=== PATIENT | male | born 1940 | race Caucasian/White ===

== ENCOUNTER → 2019-12-05 | Outpatient (CLI) | payer MEDICARE ==
[~2019-12-05] MED LIST: OMEP20ER; TAMS.4ER
== END | disposition home or self-care (01) ==
LOC: LAB SHORT 08:52 → LAB EV 08:52
DX: N40.0 Benign prostatic hyperplasia without lower urinary tract symptoms (principal)
CPT/HCPCS: 87086

== ENCOUNTER → 2019-12-06 | Outpatient (CLI) | payer MEDICARE ==
[2019-12-06 16:24] LABS: International Normalized Ratio 1.06; Prothrombin Time Results 11.3 Sec (9.7-11.5)
[2019-12-06 18:49] LABS: Percent Saturation 38.4 % (20.0-50.0)
[2019-12-07 09:11] LABS: HBSAG SCREEN Negative (Negative); HEP A AB, IGM Negative (Negative); HEP B CORE AB, IGM Negative (Negative); HEP C VIRUS AB <0.1 (0.0-0.9)
== END | disposition home or self-care (01) ==
LOC: LAB EV 15:13 → LAB SHORT 15:13
PROVIDERS: Chiropractor
DX: R74.01 Elevation of levels of liver transaminase levels (principal); R31.9 Hematuria, unspecified
CPT/HCPCS: 80074; 82728; 83540; 83550; 83690; 85610; 85730

== ENCOUNTER → 2019-12-07 | Outpatient (CLI) | payer MEDICARE ==
[2019-12-07 12:49] LABS: Albumin, Blood 4.3 g/dL (3.4-5.0); Albumin/Globulin Ratio 1.3 (0.8-1.8); Bilirubin, Direct 9.1 mg/dL (0.0-0.3); Bilirubin, Indirect 2.4 mg/dL (0.1-0.7); Bilirubin, Total 11.5 mg/dL (0.1-1.0); Globulin, Blood 3.3 g/dL (2.2-4.0); Total Protein, Blood 7.6 g/dL (6.4-8.2)
== END | disposition home or self-care (01) ==
LOC: LAB SHORT 12:32 → LAB EV 12:32
PROVIDERS: Chiropractor
DX: C25.9 Malignant neoplasm of pancreas, unspecified (principal); E80.6 Other disorders of bilirubin metabolism; K86.89 Other specified diseases of pancreas; R74.01 Elevation of levels of liver transaminase levels
CPT/HCPCS: 80076; 86301

== ENCOUNTER 2019-12-16 00:12 | Emergency (ER) | payer MEDICARE ==
[~2019-12-16] VITALS: Ht 175.3 cm; Wt 81.7 kg
[2019-12-16] MEDS ORDERED: TAMS.4ER (00:46)
[2019-12-16] MEDS ORDERED: OMEP20ER (00:46)
[2019-12-16 01:06] LABS: BASOPHILS ABSOLUTE AUTO 0.02 K/mm3 (0.00-0.23); BASOPHILS PERCENT AUTO 0 % (0-2); EOSINOPHILS ABSOLUTE AUTO 0.03 K/mm3 (0.00-0.68); EOSINOPHILS PERCENT AUTO 0 % (0-6); Hematocrit 31.2 % (37.0-53.0); Hemoglobin 10.7 g/dL (13.5-17.5); IMMATURE GRAN ABSOLUTE AUTO 0.07 K/mm3 (0.00-0.10); IMMATURE GRAN PERCENT AUTO 1 % (0-1); LYMPHOCYTES ABSOLUTE AUTO 0.59 K/mm3 (0.84-5.20); LYMPHOCYTES PERCENT AUTO 5 % (21-46); MONOCYTES ABSOLUTE AUTO 0.59 K/mm3 (0.16-1.47); MONOCYTES PERCENT AUTO 5 % (4-13); Mean Corpuscular HGB 32.6 pg (26.0-34.0); Mean Corpuscular HGB Conc 34.3 g/dL (31.5-36.5); Mean Corpuscular Volume 95 fL (80-100); Mean Platelet Volume 10.1 fL (9.1-12.4); NEUTROPHILS ABSOLUTE AUTO 9.83 K/mm3 (1.96-9.15); NEUTROPHILS PERCENT AUTO 88 % (41-73); Platelet Count 307 K/mm3 (150-400); RDW Coefficient Variation 11.7 % (11.7-14.2); RDW Standard Deviation 40.5 fL (35.1-46.3); Red Blood Cell Count 3.28 M/mm3 (4.30-5.90); White Blood Cell Count 11.13 K/mm3 (4.00-11.30)
[2019-12-16 01:24] LABS: Alanine Aminotransfer (ALT/SGP 113 U/L (12-78); Albumin, Blood 2.8 g/dL (3.4-5.0); Albumin/Globulin Ratio 0.8 (0.8-1.8); Alk Phos 180 U/L (50-136); Anion Gap 9 mmol/L (6-16); Aspartate Aminotrans (AST/SGOT 38 U/L (12-37); Bilirubin, Total 4.8 mg/dL (0.1-1.0); Blood Urea Nitrogen 13 mg/dL (8-24); Bun/Creatinine Ratio 18.4 (12.0-20.0); CO2, Blood 26 mmol/L (21-32); Calcium, Blood 8.5 mg/dL (8.5-10.1); Chloride, Blood 92 mmol/L (98-108); Creatinine, Blood 0.71 mg/dL (0.60-1.20); Globulin, Blood 3.7 g/dL (2.2-4.0); Glomerular Filtration Rate >60 (60-); Glucose, Blood 160 mg/dL (70-99); Potassium, Blood 3.6 mmol/L (3.5-5.5); Sodium, Blood 127 mmol/L (136-145); Total Protein, Blood 6.5 g/dL (6.4-8.2)
== END 2019-12-16 06:19 | disposition short-term general hospital (02) ==
LOC: ER 00:12
PROVIDERS: Student in an Organized Health Care Education/Training Program
DX: K91.89 Other postprocedural complications and disorders of digestive system (principal); K56.7 Ileus, unspecified; Z20.828 Contact with and (suspected) exposure to other viral communicable diseases; Z79.899 Other long term (current) drug therapy; Y83.8 Other surgical procedures as the cause of abnormal reaction of the patient, or of later complication, without mention of misadventure at the time of the procedure
CPT/HCPCS: 36415; 74177; 80053; 83690; 85025; 96361; 96374-59; 96375; 99285-25; J2270; J2405; J7030; Q9967; U0004

== ENCOUNTER → 2020-02-09 | Outpatient (CLI) | payer MEDICARE ==
[~2020-02-09] MED LIST changes: +CHEMO; +SULTRIDS PO; -TAMS.4ER; +TAMS.4ER PO
[2020-02-09 15:00] LABS: Alanine Aminotransfer (ALT/SGP 29 U/L (12-78); Albumin, Blood 2.3 g/dL (3.4-5.0); Albumin/Globulin Ratio 0.5 (0.8-1.8); Alk Phos 207 U/L (40-126); Anion Gap 11 mmol/L (6-16); Aspartate Aminotrans (AST/SGOT 43 U/L (12-37); Bilirubin, Total 4.9 mg/dL (0.1-1.0); Blood Urea Nitrogen 9 mg/dL (8-24); CO2, Blood 25 mmol/L (21-32); Calcium, Blood 8.5 mg/dL (8.5-10.1); Chloride, Blood 95 mmol/L (98-108); Globulin, Blood 4.2 g/dL (2.2-4.0); Glomerular Filtration Rate >60 (60-); Glucose, Blood 114 mg/dL (70-99); Potassium, Blood 3.5 mmol/L (3.5-5.5); Sodium, Blood 131 mmol/L (136-145); Total Protein, Blood 6.5 g/dL (6.4-8.2)
[2020-02-09 15:39] LABS: BASOPHILS ABSOLUTE AUTO 0.06 K/mm3 (0.00-0.23); BASOPHILS PERCENT AUTO 1 % (0-2); EOSINOPHILS ABSOLUTE AUTO 0.04 K/mm3 (0.00-0.68); EOSINOPHILS PERCENT AUTO 1 % (0-6); Hematocrit 28.9 % (37.0-53.0); Hemoglobin 9.7 g/dL (13.5-17.5); IMMATURE GRAN ABSOLUTE AUTO 0.13 K/mm3 (0.00-0.10); IMMATURE GRAN PERCENT AUTO 2 % (0-1); LYMPHOCYTES ABSOLUTE AUTO 1.55 K/mm3 (0.84-5.20); LYMPHOCYTES PERCENT AUTO 21 % (21-46); MONOCYTES ABSOLUTE AUTO 0.85 K/mm3 (0.16-1.47); MONOCYTES PERCENT AUTO 11 % (4-13); Mean Corpuscular HGB 30.3 pg (26.0-34.0); Mean Corpuscular HGB Conc 33.6 g/dL (31.5-36.5); Mean Corpuscular Volume 90 fL (80-100); Mean Platelet Volume 9.3 fL (9.1-12.4); NEUTROPHILS ABSOLUTE AUTO 4.93 K/mm3 (1.96-9.15); NEUTROPHILS PERCENT AUTO 65 % (41-73); Platelet Count 246 K/mm3 (150-400); RDW Coefficient Variation 19.2 % (11.7-14.2); RDW Standard Deviation 62.5 fL (35.1-46.3); White Blood Cell Count 7.56 K/mm3 (4.00-11.30)
== END | disposition home or self-care (01) ==
LOC: LAB SHORT 14:44
PROVIDERS: Physician Assistant Medical
DX: R53.83 Other fatigue (principal)
CPT/HCPCS: 80053; 85025

== ENCOUNTER 2020-03-29 08:03 | Inpatient (IN) | payer MEDICARE ==
[~2020-03-29] VITALS: Ht 175.3 cm; Wt 76.1 kg
[~2020-03-29 08:03] MED LIST changes: -CHEMO; -SULTRIDS PO; -TAMS.4ER PO
[2020-03-29] MEDS ORDERED: CHEMO (08:14)
[2020-03-29 09:07] LABS: Hematocrit 31.8 % (37.0-53.0); Hemoglobin 10.9 g/dL (13.5-17.5); Mean Corpuscular HGB 32.2 pg (26.0-34.0); Mean Corpuscular HGB Conc 34.3 g/dL (31.5-36.5); Mean Corpuscular Volume 94 fL (80-100); Mean Platelet Volume 9.9 fL (9.1-12.4); Platelet Count 101 K/mm3 (150-400); RDW Coefficient Variation 16.2 % (11.7-14.2); RDW Standard Deviation 55.5 fL (35.1-46.3); Red Blood Cell Count 3.38 M/mm3 (4.30-5.90); White Blood Cell Count 8.86 K/mm3 (4.00-11.30)
[2020-03-29 09:31] LABS: Alanine Aminotransfer (ALT/SGP 54 U/L (12-78); Albumin, Blood 2.2 g/dL (3.4-5.0); Albumin/Globulin Ratio 0.7 (0.8-1.8); Alk Phos 526 U/L (50-136); Anion Gap 13 mmol/L (6-16); Aspartate Aminotrans (AST/SGOT 102 U/L (12-37); Bilirubin, Total 3.7 mg/dL (0.1-1.0); Blood Urea Nitrogen 14 mg/dL (8-24); Bun/Creatinine Ratio 23.9 (12.0-20.0); CO2, Blood 23 mmol/L (21-32); Calcium, Blood 8.5 mg/dL (8.5-10.1); Chloride, Blood 96 mmol/L (98-108); Creatinine, Blood 0.59 mg/dL (0.60-1.20); Globulin, Blood 3.3 g/dL (2.2-4.0); Glomerular Filtration Rate >60 (60-); Glucose, Blood 82 mg/dL (70-99); Potassium, Blood 3.2 mmol/L (3.5-5.5); Sodium, Blood 132 mmol/L (136-145); Total Protein, Blood 5.5 g/dL (6.4-8.2)
[2020-03-29 09:37] LABS: BAND PERCENT MAN 9 % (0-8); BASOPHILS PERCENT MAN 0 % (0-2); EOSINOPHILS PERCENT MAN 0 % (0-6); LYMPHOCYTES ABSOLUTE MAN 0.26 K/mm3 (0.84-5.20); LYMPHOCYTES PERCENT MAN 3 % (21-46); MONOCYTES ABSOLUTE MAN 0.08 K/mm3 (0.16-1.47); MONOCYTES PERCENT MAN 1 % (4-13); SEG NEUTROPHILS PERCENT MAN 87 % (41-73); TOTAL CELLS COUNTED 100
[2020-03-29 09:59] LABS: Influenza A, PCR NEGATIVE (NEGATIVE); Influenza B, PCR NEGATIVE (NEGATIVE); Resp Syncytial Virus, PCR NEGATIVE (NEGATIVE); SARS-Cov-2 (COVID-19) PCR, MMC NEGATIVE (NEGATIVE)
[2020-03-29 12:45] LABS: Source, Urine Clean Catch
[2020-03-29 12:51] LABS: Blood, Urine 2+ (Neg); Glucose Qualitative, Urine Neg (Neg); Ketones, Urine 1+ (Neg); Leukocyte Esterase, Urine 1+ (Neg); Nitrite, Urine Pos (Neg); Protein, Urine 2+ (Neg); Urobilinogen, Urine 4+ (Normal)
[2020-03-29 12:59] LABS: Bilirubin, Urine 1+ (Neg); Color, Urine Amber (P-Yellow)
[2020-03-29 13:00] LABS: Appearance, Urine Clear (Clear)
[2020-03-29 13:03] LABS: Bacteria Mod /hpf; Calcium Oxalate Crystals Rare /hpf; Mucus Heavy (0-Heavy); Squamous Epithelial Cells Rare /hpf (Few)
[2020-03-29] MEDS ORDERED: TAMS.4ER PO (13:42)
--- NOTE | 2020-03-29 17:54 | NUR ---
ADMIT NOTE RECEIVED REPORT FROM MAGNOLIA METCALF IN ED VIA TELEPHONE. PT TO ROOM KIMMIE VINCENT. 1 PT TO ROOM VIA ZEE; 1 PERSON ASSIST TRANSFER TO BED. PT AND SPOUSE ORIENTED TO ROOM AND CALL LIGHT. PT EDUCATED ON FALL RISK, SPOUSE STATES PT FELL AT HOME LAST NIGHT. PT A&Ox4; CALM AND COOPERATIVE WITH CARE. PT RESTING IN BED, SBA. PT DENIES PAIN, CHEST PAIN, SOB, NAUSEA AND DIZZINESS. LS CLEAR SPO2 >90% ON RA; PT REPORTS DRY COUGH WHEN STANDING. BP SOFT; OTHER VSS. NO OTHER ACUTE CHAGNES NOTED DURING SHIFT. PT SPOUSE ASKING FOR RESOURCES LIKE HOME HEALTH AND CAREGIVERS; MAN CAN BE REACHED AT .
--- NOTE | 2020-03-29 19:15 | NUR ---
ASSUMED CARE RECEIVED BEDSIDE REPORT FROM MAGNOLIA FISHER; PT A&O X 4; VSS; DENIES CHEST PAIN; O2 SATS >93 ON RA; NS W/KCL INFUSING IN MEDIPORT; NO DISTRESS NOTED; CALL LIGHT IN REACH; BED IN LOWEST POSITION.
--- NOTE | 2020-03-29 22:13 | NUR ---
UPDATE NOTIFIED OF POSITIVE BLOOD CULTURE W/ GRAM + BACCILI; NO NEW ORDERS GIVEN PT IS RECIEVING ZOZYN AND RECEIVED ZOZYN AND ROCEPHIN IN ER.
--- NOTE | 2020-03-30 06:29 | NUR ---
SHIFT SUMMARY PT A&O X 4; PARTICULAR W/ CARE; VSS; DENIES CHEST PAIN; BP SOFT BUT STABLE; AFEBRILE T/O SHIFT; O2 SATS >93 ON RA; BLOOD CULTURES GRAM - BACCILI, THIS WILL BE VERIFIED DURING DAY SHIFT INITIALLY REPORTED GRAM +; PT RECIEVING ZOSYN; NS W/KCL @ 100 INFUSING IN R CW MEDIPORT; PT JAUNDICED IN COLOR; SBA W/ FWW; PT HAS HAD FALL @ HOME; PT STATES DUE TO CA TX HE DOES NOT TOLERATE ICE WATER AND PREFERS NO ICE IN CUP; EPISODE OF SHAKES 1 X THIS SHIFT, HEAT PAD AND WARM BLANKET BROUGHT TO PATIENT AND SHAKES SUBSIDED; PT STATED HE HAS EXPERIENCED THIS AT HOME; CALL LIGHT IN REACH; BED IN LOWEST POSITION; WILL CONTINUE TO MONITOR CLOSELY UNTIL HAND OFF TO DAY SHIFT RN.
[2020-03-30 07:16] LABS: Hematocrit 30.3 % (37.0-53.0); Hemoglobin 10.5 g/dL (13.5-17.5); Mean Corpuscular HGB 32.3 pg (26.0-34.0); Mean Corpuscular HGB Conc 34.7 g/dL (31.5-36.5); Mean Corpuscular Volume 93 fL (80-100); Mean Platelet Volume 9.4 fL (9.1-12.4); Platelet Count 82 K/mm3 (150-400); RDW Standard Deviation 54.5 fL (35.1-46.3); Red Blood Cell Count 3.25 M/mm3 (4.30-5.90); White Blood Cell Count 8.85 K/mm3 (4.00-11.30)
[2020-03-30 07:31] LABS: Alanine Aminotransfer (ALT/SGP 42 U/L (12-78); Albumin, Blood 1.8 g/dL (3.4-5.0); Albumin/Globulin Ratio 0.6 (0.8-1.8); Alk Phos 416 U/L (50-136); Anion Gap 7 mmol/L (6-16); Aspartate Aminotrans (AST/SGOT 88 U/L (12-37); Bilirubin, Total 2.5 mg/dL (0.1-1.0); Blood Urea Nitrogen 16 mg/dL (8-24); Bun/Creatinine Ratio 30.1 (12.0-20.0); CO2, Blood 24 mmol/L (21-32); Calcium, Blood 7.6 mg/dL (8.5-10.1); Chloride, Blood 103 mmol/L (98-108); Creatinine, Blood 0.53 mg/dL (0.60-1.20); Globulin, Blood 3.2 g/dL (2.2-4.0); Glomerular Filtration Rate >60 (60-); Glucose, Blood 87 mg/dL (70-99); Potassium, Blood 3.5 mmol/L (3.5-5.5); Sodium, Blood 134 mmol/L (136-145)
[2020-03-30 07:37] LABS: BAND PERCENT MAN 6 % (0-8); BASOPHILS PERCENT MAN 0 % (0-2); EOSINOPHILS PERCENT MAN 0 % (0-6); LYMPHOCYTES ABSOLUTE MAN 0.79 K/mm3 (0.84-5.20); LYMPHOCYTES PERCENT MAN 9 % (21-46); MONOCYTES ABSOLUTE MAN 0.17 K/mm3 (0.16-1.47); MONOCYTES PERCENT MAN 2 % (4-13); NEUTROPHILS ABSOLUTE MAN 7.87 K/mm3 (1.96-9.15); SEG NEUTROPHILS PERCENT MAN 83 % (41-73); TOTAL CELLS COUNTED 100
--- NOTE | 2020-03-30 18:10 | NUR ---
SHIFT SUMMARY PT A&Ox4; CONCRETE. PT EXPRESSED THE DESIRE TO BE DISCHARGE TODAY T/O SHIFT, DR THOMAS AT BEDSIDE THIS AFTERNOON; EDUCDATED PT ON POSITIVE BLOOD CULTURES AND THE NEED TO STAY AND CONTINUE RECIEVING IV ANTIBIOTICS. PT EXPRESSES THE DESIRE TO CONTINUE TO LEAVE, PT EDUCATED THAT THIS WOULD BE AMA THE PATIEINT IS NEEDING TO CONTINUE IV ANTIBIOTICS. PT EXPRESSED THAT HE WOULD ONLY STAY IF DR CASAREZ, HIS ONCOLOGIST, EXPRESSED THE DESIRE FOR HIM TO STAY, PT IN AWAITING NOTIIFED FROM DR CASAREZ. PT DOMINIQUE PAIN, CHEST PAIN, SOB, [place] AND DIZZINESS T/O SHIFT. UP WITH 1 PERSON ASSIST AND WALKER, SPOUSE BROUGHT IN PERSONAL WALKER THIS AFTERNOON. VSS. NO OTHER ACUTE CHANGES NOTED DURING SHIFT. WILL CONTINUE TO MONITOR UNTIL REPORT GIVEN TO ONCOMING RN.
--- NOTE | 2020-03-30 19:15 | NUR ---
ASSUMED CARE RECEIVED BEDSIDE REPORT FROM MAGNOLIA FISHER; PT A&O X 4; WAS EXPRESSING DESIRE TO LEAVE HOSPITAL BUT AFTER HEARING THAT AND HAD COLLABORATED, PT DECIDED TO STAY TONIGHT; VSS; DENIES CHEST PAIN; O2 SATS >93 ON RA; NO DISTRESS NOTED; AID SENT TO ROOM TO ASSIST W/ PM CARE; CALL LIGHT IN REACH; BED IN LOWEST POSITION.
[2020-03-31 04:16] LABS: BASOPHILS PERCENT AUTO 0 % (0-2); EOSINOPHILS ABSOLUTE AUTO 0.03 K/mm3 (0.00-0.68); EOSINOPHILS PERCENT AUTO 0 % (0-6); Hematocrit 29.9 % (37.0-53.0); Hemoglobin 10.3 g/dL (13.5-17.5); IMMATURE GRAN ABSOLUTE AUTO 0.11 K/mm3 (0.00-0.10); IMMATURE GRAN PERCENT AUTO 2 % (0-1); LYMPHOCYTES ABSOLUTE AUTO 1.35 K/mm3 (0.84-5.20); LYMPHOCYTES PERCENT AUTO 18 % (21-46); MONOCYTES ABSOLUTE AUTO 0.22 K/mm3 (0.16-1.47); MONOCYTES PERCENT AUTO 3 % (4-13); Mean Corpuscular HGB 31.9 pg (26.0-34.0); Mean Corpuscular HGB Conc 34.4 g/dL (31.5-36.5); Mean Corpuscular Volume 93 fL (80-100); Mean Platelet Volume 10.2 fL (9.1-12.4); NEUTROPHILS ABSOLUTE AUTO 5.76 K/mm3 (1.96-9.15); NEUTROPHILS PERCENT AUTO 77 % (41-73); Platelet Count 73 K/mm3 (150-400); RDW Coefficient Variation 15.9 % (11.7-14.2); RDW Standard Deviation 53.7 fL (35.1-46.3); Red Blood Cell Count 3.23 M/mm3 (4.30-5.90); White Blood Cell Count 7.47 K/mm3 (4.00-11.30)
[2020-03-31 04:32] LABS: Anion Gap 6 mmol/L (6-16); Blood Urea Nitrogen 14 mg/dL (8-24); Bun/Creatinine Ratio 27.3 (12.0-20.0); CO2, Blood 25 mmol/L (21-32); Calcium, Blood 7.7 mg/dL (8.5-10.1); Chloride, Blood 102 mmol/L (98-108); Creatinine, Blood 0.51 mg/dL (0.60-1.20); Glomerular Filtration Rate >60 (60-); Glucose, Blood 98 mg/dL (70-99); Potassium, Blood 3.4 mmol/L (3.5-5.5); Sodium, Blood 133 mmol/L (136-145)
--- NOTE | 2020-03-31 06:15 | NUR ---
SHIFT SUMMARY PT A&O X 4; SEEMS UNIMPRESSED W/ STAFF; INTERVENTIONS GROUPED TO MINIMIZE INTERUPTIONS; VSS; DENIES CHEST PAIN; NSR NOTED ON TELE; O2 SATS > 93 ON RA; SBA FOR BRP W/ FWW; PT DID HAVE A [employer] BM THIS SHIFT; EAR PLUGS BROUGHT TO PT; HEAT PAD OFFERED; NS W/ KCL AND ZOSYN INFUSED VIA MEDIPORT IN R CW; NO ACUTE CHANGES THIS SHIFT; CALL LIGHT IN REACH; BED IN LOWEST POSITION; WILL CONTINUE TO MONITOR CLOSELY UNTIL HAND OFF TO DAY SHIFT RN.
--- NOTE | 2020-03-31 17:50 | NUR ---
SHIFT SUMMARY PT ALERT AND ORIENTED. VS STABLE. TELEMETRY DC'D THIS SHIFT. 02 SATS REMAIN ABOVE 90% ON RA. PT DENIES ANY PAIN. PT ABLE TO AMBULATE THROUGH THE WHITEHEAD WITH WALKER. MEDIPORT ACCESSED WITH NS WITH KCL INFUSING PER ORDERS. WILL CONTINUE TO MONITOR AND REPORT TO ONCOMING RN. CALL LIGHT IN REACH.
--- NOTE | 2020-03-31 20:53 | NUR ---
ASSUMED CARE FROM DAY SHIFT RN PT WAS AWAKE AND WATCHING TV DURING SHIFT REPORT. PT WAS ABLE TO TAKE EVEN MEDS WITH WATER AND NO ISSUES. PT REPORTED FEELING SOME ABDOMINAL UPSET, REFLUX DISCOMFORT WHICH IS NORMAL; PT REQUESTED HIS PEPCID WHICH WAS GIVEN PER EMAR. PT WAS ABLE TO INDEPENDENTLY PERFORM EVENING ORAL CARE AND PM CARE. VS STABLE, PT DENIES ANY PAIN OR DISCOMFORT. PT IS IN HIS ROOM RESTING AT THIS TIME
[2020-04-01 04:20] LABS: BASOPHILS ABSOLUTE AUTO 0.01 K/mm3 (0.00-0.23); BASOPHILS PERCENT AUTO 0 % (0-2); EOSINOPHILS ABSOLUTE AUTO 0.08 K/mm3 (0.00-0.68); EOSINOPHILS PERCENT AUTO 1 % (0-6); Hematocrit 30.5 % (37.0-53.0); Hemoglobin 10.4 g/dL (13.5-17.5); IMMATURE GRAN ABSOLUTE AUTO 0.07 K/mm3 (0.00-0.10); IMMATURE GRAN PERCENT AUTO 1 % (0-1); LYMPHOCYTES ABSOLUTE AUTO 1.55 K/mm3 (0.84-5.20); LYMPHOCYTES PERCENT AUTO 23 % (21-46); MONOCYTES PERCENT AUTO 6 % (4-13); Mean Corpuscular HGB 31.4 pg (26.0-34.0); Mean Corpuscular HGB Conc 34.1 g/dL (31.5-36.5); Mean Corpuscular Volume 92 fL (80-100); Mean Platelet Volume 9.3 fL (9.1-12.4); NEUTROPHILS ABSOLUTE AUTO 4.69 K/mm3 (1.96-9.15); NEUTROPHILS PERCENT AUTO 69 % (41-73); Platelet Count 80 K/mm3 (150-400); RDW Coefficient Variation 15.8 % (11.7-14.2); RDW Standard Deviation 53.3 fL (35.1-46.3); Red Blood Cell Count 3.31 M/mm3 (4.30-5.90)
--- NOTE | 2020-04-01 04:33 | NUR ---
SHIFT SUMMARY PT HAS BEEN SLEEPING THROUGHOUT THE MAJORITY OF THE SHIFT. PT WAS SWITCHED OFF OF NS WITH KCL TONIGHT AND GIVEN K-DUR PO FOR POTASSIUM REPLACEMENT. PT HAS NS RUNNING KVO INTO THE MEDIPORT ALONG WITH ZOSYN. PT HAS BEEN ABLE TO INDEPENDENTLY USE THE URINAL AT BEDSIDE DURING THE NIGHT. PT DENIES PAIN OR DISCOMFORT. PT HAS COOPERATED WITH CARE, PT ON RA, VS STABLE.
[2020-04-01 04:41] LABS: Alanine Aminotransfer (ALT/SGP 51 U/L (12-78); Albumin, Blood 1.8 g/dL (3.4-5.0); Albumin/Globulin Ratio 0.6 (0.8-1.8); Alk Phos 577 U/L (50-136); Anion Gap 7 mmol/L (6-16); Aspartate Aminotrans (AST/SGOT 108 U/L (12-37); Bilirubin, Total 2.3 mg/dL (0.1-1.0); Blood Urea Nitrogen 12 mg/dL (8-24); Bun/Creatinine Ratio 24.3 (12.0-20.0); CO2, Blood 25 mmol/L (21-32); Calcium, Blood 7.7 mg/dL (8.5-10.1); Chloride, Blood 104 mmol/L (98-108); Creatinine, Blood 0.49 mg/dL (0.60-1.20); Glomerular Filtration Rate >60 (60-); Glucose, Blood 102 mg/dL (70-99); Potassium, Blood 3.7 mmol/L (3.5-5.5); Sodium, Blood 136 mmol/L (136-145); Total Protein, Blood 4.8 g/dL (6.4-8.2)
[2020-04-01] MEDS ORDERED: SULTRIDS PO (09:01)
--- NOTE | 2020-04-01 09:46 | NUR ---
NURSING PCU DISCHARGE SUMMARY: Assumed care of pt at approx 0700. A/O, anxious for discharge home. Respiratory and cardiac status appear stable w/no c/o dyspnea or chest discomfort. Pt denies administration of a.m. meds with only requests for rounding by PMD to complete discharge. Seen by PMD, discharge home d/o received. Mediport deaccessed after saline/heparin flushes. Pt verbalized understanding of all written and verbal discharge instructions. Currently in room getting dressed, will call when ready for escort out.
--- NOTE | 2020-04-01 10:58 | NUR ---
PT WAS DISCHARGED TO HOME TODAY WITH DISCHARGED ORDERS. CN WENT OVER DISCHARGE ORDERS AND INSTRUCTIONS WITH THE PT, MEDIPORT HEPARIN LOCKED. VITALS HAS BEEN STABLE THIS AM NO COMPLAINS. ALL BELONGINGS SENT WITH PT, PT ACCOMPANIED VIA PCT VIA WHEELCHAIR FOR TRANSPORT.
--- NOTE | 2020-04-01 18:18 | NUR ---
ADMIT: 03/29/20 DISCHARGE: 04/01/20 DX: Sepsis due to UTI CC: cpeabody SATHISH CALL: call Sharan at home for sathish, would like him to be seen Tuesday 04/04 or Tuesday please. RESIDENCE: home with spouse CAREGIVER: Suri Crump, Spouse / Partner, DX: Pancreatic cancer, Degenerative joint disease, liver mets, see list DME: walker CCM: none HOME HEALTH: [facility]- 2019 SUMMARY: admit 03/29/20 Discharge 04/01/20 home with , she can help with prescriptions if needed. Left SATHISH letter and discussed follow up appointment hopfully tuesday or Tuesday per Dr Guaman request. Did not idenify any additional care needs at the time of discharge. cp 1. Sepsis. The patient has received fluid boluses in the emergency department. He has responded nicely
== END 2020-04-01 10:41 | disposition home or self-care (01) | DRG 872 ==
LOC: ER 08:03 → ERHOLD 14:27 → PCU 16:44
PROVIDERS: Emergency Medicine; Family Medicine; ADMIT Internal Medicine
DX: A41.51 Sepsis due to Escherichia coli [E. coli] (principal); N39.0 Urinary tract infection, site not specified; C25.9 Malignant neoplasm of pancreas, unspecified; C78.7 Secondary malignant neoplasm of liver and intrahepatic bile duct; E87.1 Hypo-osmolality and hyponatremia; Z20.822 Contact with and (suspected) exposure to COVID-19; R65.20 Severe sepsis without septic shock; D69.6 Thrombocytopenia, unspecified; A41.59 Other Gram-negative sepsis; N40.0 Benign prostatic hyperplasia without lower urinary tract symptoms; E87.6 Hypokalemia
CPT/HCPCS: 0241U; 36415; 71045; 80048; 80053; 81001; 83605; 84145; 85025; 87040; 87077; 87086; 87186; 93005; 93010; 96361; 96365; 99285-25; A9270; J0696; J1642; J1650; J2543; J3480; J7030; J7040

== ENCOUNTER 2020-05-15 07:44 | Day surgery (SDC) | payer MEDICARE ==
[~2020-05-15] VITALS: Ht 175.3 cm; Wt 87.0 kg
[~2020-05-15 07:44] MED LIST changes: +CHEMO; +SULTRIDS PO; +TAMS.4ER PO
--- NOTE | 2020-05-15 13:02 | NUR ---
PT LEAVING AND WILL RETURN LATER FOR PROCEDURE. PT A&OX3 AND DENIED ANY PAIN AT THIS TIME. PROCEDURE WAS NOT PERFORMED DUE TO NOT HAVING THE CORRECT EQUIPMENT. IV COVERED FOR PROTECTION. PT ABLE TO DRESS SELF WITH ASSISTANCE. PT WHEELED OUT BY THIS NURSE.
--- NOTE | 2020-05-15 14:01 | NUR ---
[facility].
--- NOTE | 2020-05-15 15:15 | NUR ---
DR. WALDROP IN TO SPEAK WITH PT AND FAMILY. DR. WALDROP SPOKE WITH DR. GABBY FISHER IN [facility] TO PT'S SWELLING IN THE LOWER LEGS AND RESULTS OF PROCEDURE PERFORMED TODAY.
--- NOTE | 2020-05-15 17:22 | NUR ---
PT REMAINS A&OX3. NOTED EDEMA BILATERALLY IN LEGS 4+. EDEMA HAS BEEN ADDRESSED BY DR. WALDROP AND DR. CASAREZ [facility]. RIGHT UPPER ABDOMEN SITE REMAINS CDI-NO HEMATOMA NOTED. SBAR GIVEN TO AVRIL Irene RN.
--- NOTE | 2020-05-15 17:55 | NUR ---
PT REMAINED A&OX3 AND DENIED ANY PAIN AT THIS TIME. UPPER LEFT ABDOMEN SITE REMAINS CDI-NO HEMATOMA NOTED. PT AMBULATED TO RESTROOM WITH 1 PERSON ASSIST TO VOID. IV DC'D WITH CANYLA IN TACT. DISCHARGE PAPERWORK GONE OVER WITH PT AND SPOUSE. PT AND SPOUSE VERBALLY STATED THE UNDERSTANDING OF THE DISCHARGE EDUCATION AND DENIED ANY QUESITONS AT THIS TIME. PT ABLE TO DRESS WITH ASSISTANCE. PT WHEELED OUT BY THIS NURSE.
--- NOTE | 2020-05-15 18:05 | NUR ---
PATIENT RE POSITIONED IN BED. ATTENDS CHANGED. PATIENT HAD SMALL BOWL MOVEMENT.
--- NOTE | 2020-05-15 19:18 | NUR ---
PHONED REAMER HAND AT HOME TO CONFIRM ADDRESS A MAKE AWARE THAT AMBULANCE WAS HERE NOW TO TRANSPORT PATIENT HOME.
--- NOTE | 2020-05-15 19:28 | NUR ---
PATIENT TRANSFERRED TO [facility]. LEFT FOOT REMAINS SOFT AND NONTENDER. NO BLEEDING OR SWELLING. NO FURTHER QUESTIONS FROM TRANSPORT TEAM.
== END 2020-05-15 23:01 | disposition home or self-care (01) ==
LOC: MHTC 07:44
DX: C25.9 Malignant neoplasm of pancreas, unspecified (principal); C78.7 Secondary malignant neoplasm of liver and intrahepatic bile duct; K83.1 Obstruction of bile duct; R18.0 Malignant ascites; D70.1 Agranulocytosis secondary to cancer chemotherapy; D64.9 Anemia, unspecified; R19.7 Diarrhea, unspecified
CPT/HCPCS: 47536; 47542; 99152; 99153; C1725; C1729; C1769; J0690; J1644; J2250; J3010; J7030; J7040; Q9967

== ENCOUNTER 2020-05-15 12:25 | Emergency (ER) | payer MEDICARE ==
[~2020-05-15] VITALS: Ht 175.3 cm; Wt 86.2 kg
[2020-05-15 13:03] LABS: BASOPHILS PERCENT AUTO 0 % (0-2); EOSINOPHILS ABSOLUTE AUTO 0.04 K/mm3 (0.00-0.68); EOSINOPHILS PERCENT AUTO 1 % (0-6); Hematocrit 35.6 % (37.0-53.0); Hemoglobin 12.2 g/dL (13.5-17.5); IMMATURE GRAN ABSOLUTE AUTO 0.05 K/mm3 (0.00-0.10); IMMATURE GRAN PERCENT AUTO 1 % (0-1); LYMPHOCYTES ABSOLUTE AUTO 1.14 K/mm3 (0.84-5.20); LYMPHOCYTES PERCENT AUTO 19 % (21-46); MONOCYTES ABSOLUTE AUTO 0.04 K/mm3 (0.16-1.47); MONOCYTES PERCENT AUTO 1 % (4-13); Mean Corpuscular HGB 33.3 pg (26.0-34.0); Mean Corpuscular HGB Conc 34.3 g/dL (31.5-36.5); Mean Corpuscular Volume 97 fL (80-100); Mean Platelet Volume 9.5 fL (9.1-12.4); NEUTROPHILS ABSOLUTE AUTO 4.89 K/mm3 (1.96-9.15); NEUTROPHILS PERCENT AUTO 80 % (41-73); Platelet Count 161 K/mm3 (150-400); RDW Coefficient Variation 16.9 % (11.7-14.2); RDW Standard Deviation 60.4 fL (35.1-46.3); Red Blood Cell Count 3.66 M/mm3 (4.30-5.90); White Blood Cell Count 6.16 K/mm3 (4.00-11.30)
[2020-05-15 13:30] LABS: Alanine Aminotransfer (ALT/SGP 32 U/L (12-78); Albumin, Blood 2.2 g/dL (3.4-5.0); Albumin/Globulin Ratio 0.7 (0.8-1.8); Alk Phos 515 U/L (50-136); Anion Gap 6 mmol/L (6-16); Aspartate Aminotrans (AST/SGOT 71 U/L (12-37); Bilirubin, Total 2.3 mg/dL (0.1-1.0); Blood Urea Nitrogen 9 mg/dL (8-24); Bun/Creatinine Ratio 17.9 (12.0-20.0); CO2, Blood 28 mmol/L (21-32); Calcium, Blood 8.2 mg/dL (8.5-10.1); Chloride, Blood 101 mmol/L (98-108); Globulin, Blood 3.2 g/dL (2.2-4.0); Glomerular Filtration Rate >60 (60-); Glucose, Blood 87 mg/dL (70-99); Potassium, Blood 3.4 mmol/L (3.5-5.5); Sodium, Blood 135 mmol/L (136-145); Total Protein, Blood 5.4 g/dL (6.4-8.2); Troponin I <0.015 ng/mL (0.000-0.040)
== END 2020-05-15 13:50 | disposition home or self-care (01) ==
LOC: ER 12:25
PROVIDERS: Physician Assistant
DX: R60.0 Localized edema (principal)
CPT/HCPCS: 36415; 71046; 80053; 83880; 84484; 85025; 93005; 93010; 99284-25

== ENCOUNTER 2020-05-15 20:05 | Emergency (ER) | payer MEDICARE ==
[~2020-05-15] VITALS: Ht 175.3 cm; Wt 70.3 kg
[2020-05-15 20:25] LABS: BASOPHILS ABSOLUTE AUTO 0.01 K/mm3 (0.00-0.23); BASOPHILS PERCENT AUTO 0 % (0-2); EOSINOPHILS ABSOLUTE AUTO 0.01 K/mm3 (0.00-0.68); EOSINOPHILS PERCENT AUTO 0 % (0-6); Hematocrit 35.2 % (37.0-53.0); Hemoglobin 12.8 g/dL (13.5-17.5); IMMATURE GRAN ABSOLUTE AUTO 0.14 K/mm3 (0.00-0.10); IMMATURE GRAN PERCENT AUTO 2 % (0-1); LYMPHOCYTES ABSOLUTE AUTO 0.67 K/mm3 (0.84-5.20); LYMPHOCYTES PERCENT AUTO 9 % (21-46); MONOCYTES ABSOLUTE AUTO 0.11 K/mm3 (0.16-1.47); MONOCYTES PERCENT AUTO 1 % (4-13); Mean Corpuscular HGB 35.2 pg (26.0-34.0); Mean Corpuscular HGB Conc 36.4 g/dL (31.5-36.5); Mean Corpuscular Volume 97 fL (80-100); Mean Platelet Volume 10.1 fL (9.1-12.4); NEUTROPHILS ABSOLUTE AUTO 6.71 K/mm3 (1.96-9.15); NEUTROPHILS PERCENT AUTO 88 % (41-73); Platelet Count 146 K/mm3 (150-400); RDW Standard Deviation 60.5 fL (35.1-46.3); Red Blood Cell Count 3.64 M/mm3 (4.30-5.90); White Blood Cell Count 7.65 K/mm3 (4.00-11.30)
[2020-05-15 20:38] LABS: Alanine Aminotransfer (ALT/SGP 33 U/L (12-78); Albumin, Blood 2.3 g/dL (3.4-5.0); Albumin/Globulin Ratio 0.8 (0.8-1.8); Alk Phos 507 U/L (50-136); Anion Gap 7 mmol/L (6-16); Aspartate Aminotrans (AST/SGOT 75 U/L (12-37); Bilirubin, Total 2.6 mg/dL (0.1-1.0); Blood Urea Nitrogen 12 mg/dL (8-24); Bun/Creatinine Ratio 18.7 (12.0-20.0); CO2, Blood 27 mmol/L (21-32); Calcium, Blood 8.5 mg/dL (8.5-10.1); Chloride, Blood 101 mmol/L (98-108); Creatinine, Blood 0.64 mg/dL (0.60-1.20); Glomerular Filtration Rate >60 (60-); Glucose, Blood 92 mg/dL (70-99); Potassium, Blood 3.7 mmol/L (3.5-5.5); Sodium, Blood 135 mmol/L (136-145); Total Protein, Blood 5.3 g/dL (6.4-8.2)
[2020-05-15 22:43] LABS: Source, Urine Clean Catch
[2020-05-15 22:47] LABS: Bilirubin, Urine Neg (Neg); Blood, Urine Neg (Neg); Glucose Qualitative, Urine Neg (Neg); Ketones, Urine Neg (Neg); Leukocyte Esterase, Urine Neg (Neg); Nitrite, Urine Neg (Neg); Protein, Urine Neg (Neg); Specific Gravity, Urine 1.005 (1.003-1.022); Urobilinogen, Urine NORM (Normal)
[2020-05-15 22:53] LABS: Appearance, Urine Clear (Clear); Color, Urine Yellow (P-Yellow)
== END 2020-05-15 23:40 | disposition home or self-care (01) ==
LOC: ER 20:05
PROVIDERS: Emergency Medicine
DX: R60.0 Localized edema (principal); T41.45XA Adverse effect of unspecified anesthetic, initial encounter; Z79.899 Other long term (current) drug therapy
CPT/HCPCS: 36415; 80053; 81003; 85025; 93005; 93010; 96374; 99284-25; J1940